=== PATIENT | female | born 1980 | race Caucasian/White ===

== ENCOUNTER 2021-05-12 10:43 | Emergency (ER) | payer SELFPAY ==
[~2021-05-12] VITALS: Ht 157.5 cm; Wt 64.0 kg
[2021-05-12 10:55] VITALS: BP 156/80
--- NOTE | 2021-05-12 10:59 | NUR ---
PT TAKEN TO ER BED 3
[2021-05-12] MEDS ORDERED: NACL 0.9% 1,000 ML IV SCH (11:05)
[2021-05-12] MEDS ORDERED: ONDANSETRON 4 MG/2 ML VIAL IVP ONE (11:05)
[2021-05-12] MEDS ORDERED: KETOROLAC 30 MG/ML VIAL IVP ONE (11:05)
--- NOTE | 2021-05-12 11:30 | NUR ---
40 Y/O FEMALE C/O RIGHT SIDED ABDOMINAL PAIN X6 DAYS. PT RATES PAIN 10/10 THAT SHE DESCRIBES DULL AND RADIATES TO BACK. DENIES TAKING ANYTHING AT HOME FOR PAIN. PT ALSO C/O +N/V AND STATES THAT SHE HAS LOST WEIGHT. DENIES DIARRHEA. DENIES DYSURIA. ABD IS TENDER ON PALPATION WITH GUADING. PT A/O X4 WITH EVEN AND UNLABORED RESPIRATIONS. PT GIVEN EMESIS BAG. PMH:DENIES NKDA SX:APPENDECTOMY X10YRS AGO
[2021-05-12 12:15] LABS: BASOPHILS % (AUTO) 0.2 % (0.0-2.0); EOSINOPHILS % (AUTO) 0.2 % (0.0-4.0); HEMATOCRIT 40.8 % (36-48); HEMOGLOBIN 13.4 g/dL (12.0-16.0); LYMPHOCYTES # (AUTO) 2.1 K/uL (2.5-16.5); MEAN CORPUSCULAR HEMOGLOBIN 26 pg (27-31); MEAN CORPUSCULAR HGB CONC 33 g/dL (33-37); MEAN CORPUSCULAR VOLUME 79.3 fL (80-94); MONOCYTES # (AUTO) 0.6 K/uL (0.8-1.0); MONOCYTES % (AUTO) 5.3 % (1.7-9.3); NEUTROPHILS # (AUTO) 8.3 K/uL (1.8-7.7); NEUTROPHILS % (AUTO) 75.3 % (42.2-75.2); PLATELET COUNT (AUTO) 243 K/uL (140-450); RED BLOOD CELL COUNT(AUTO) 5.14 MIL/uL (4.20-5.40); RED CELL DISTRIBUTION WIDTH 14.4 % (11.6-13.7); WHITE BLOOD COUNT (AUTO) 11.1 K/uL (4.8-10.8)
--- NOTE | 2021-05-12 12:30 | NUR ---
PT LAYING IN BED WITH EVEN AND UNLABORED RESPIRATIONS. PT DENIES NAUSEA. PT STATES THAT PAIN IS BETTER. FLUIDS STILL RUNNING, WILL CONTINUE TO MONITOR
[2021-05-12 12:31] LABS: ANION GAP 14.7 (8-16); CARBON DIOXIDE 23.8 mmol/L (21-32); CREATININE 0.7 mg/dL (0.6-1.3); POTASSIUM 3.5 mmol/L (3.5-5.1); TOTAL BILIRUBIN 0.8 mg/dL (0.0-1.0)
--- NOTE | 2021-05-12 13:13 | NUR ---
DR GARZA AT BEDSIDE EVALUATING PT
[2021-05-12] MEDS ORDERED: ONDA8TAB87 PO (13:25)
[2021-05-12] MEDS ORDERED: ACET-8386 PO (13:25)
[2021-05-12] MEDS ORDERED: IBUP-2213 PO (13:25)
[2021-05-12 13:42] VITALS: BP 137/66
--- NOTE | 2021-05-12 13:45 | NUR ---
Patient discharged with v/s stable. Written and verbal after care instructions ABOUT CHOLELITHIASIS AND NAUSEA AND VOMITING given and explained. Patient alert, oriented and verbalized understanding of instructions. Ambulatory with steady gait. All questions addressed prior to discharge. ID band removed. Patient advised to follow up with PMD. Rx of NORCO 5-325MG, IBUPROFEN AND ZOFRAN given. Patient educated on indication of medication including possible reaction and side effects. Opportunity to ask questions provided and answered.
== END 2021-05-12 13:45 | disposition home or self-care (01) ==
LOC: MED 10:43
DX: R10.9 Unspecified abdominal pain (principal); R11.2 Nausea with vomiting, unspecified
CPT/HCPCS: 36415; 80053; 81002; 81025; 83690; 85025; 96361; 96374; 96375; 99284; J1885; J2405; J7030